=== PATIENT | male | born 2005 | race Caucasian/White ===

== ENCOUNTER 2024-04-21 02:40 | Observation (INO) ==
[2024-04-21 03:21] LABS: INR 1.14 (0.85-1.14)
[2024-04-21 03:28] LABS: ABS Eosinophils 0.1 10^3/uL (0.0-0.5); ABS Lymphocytes 1.3 10^3/uL (1.0-4.8); ABS Neutrophils 10.6 10^3/uL (1.5-7.6); ABS Nucleated RBC 0.01 10^3/ul; Eosinophil % 0.5 %; Hematocrit 41.4 % (38-53); Hemoglobin 13.6 g/dL (13.2-16.3); Lymphocyte % 10.1 %; Mean Corpuscular Hemoglobin 29.8 pg (27-33); Mean Corpuscular Hgb Conc 32.9 g/dL (31-36); Mean Corpuscular Volume 90.5 fL (80-97); Mean Platelet Volume 6.9 fL (7.5-11.2); Nucleated Red Blood Cells % 0.1 %/100WBC (0.0-0.8); Platelet Count 398 10^3/uL (150-450); Red Blood Count 4.57 10^6/uL (4.06-5.63); Red Cell Distribution Width 13.5 % (12-17)
[2024-04-21 04:08] LABS: Albumin 4.5 g/dL (3.2-5.2); Albumin/Globulin Ratio 1.7 (1-3); C Reactive Protein 11.75 mg/L (<8.01); Calcium 9.3 mg/dL (8.6-10.3); Creatinine, Serum 1.15 mg/dL (0.67-1.17); Globulin 2.7 g/dL (2-4); Potassium 4.5 mmol/L (3.5-5.0); Total Bilirubin 0.5 mg/dL (0.2-1.0); Total Protein 7.2 g/dL (6.4-8.9); eGFR CKD-EPI 93.4 (>60)
[2024-04-21] MEDS: Iodixanol (CONTRAST) 320 MG/ML 100 ML SDV IV ONE (04:35)
[2024-04-21 04:38] LABS: High Sensitivity Troponin 1 Hr 17 pg/mL (<20)
[2024-04-21 04:45] LABS: Erythrocyte Sed Rate 4 mm/Hr (0-14)
[2024-04-21] MEDS ORDERED: Sulfur Hexaflouride MICROSPHR 25 MG VIAL IV PRN (08:16)
[2024-04-21 16:31] VITALS: BP 117/60
== END 2024-04-21 16:33 | disposition home or self-care (01) ==
LOC: ED 02:40 → EDHOLD 02:40
PROVIDERS: ADMIT Internal Medicine; ATTEND Internal Medicine